=== PATIENT | female | born 1980 | race Caucasian/White ===

== ENCOUNTER 2019-12-29 08:45 | Outpatient (CLI) | payer OTHER, SELFPAY ==
--- NOTE | ~2019-12-29 | US_ITS ---
EXAMINATION: US soft tissue head and neck EXAM DATE: 12/29/2019 09:21 INDICATION: Bilateral palpable lumps, submandibular region since August. TECHNIQUE: Multiple grayscale and Doppler images of the intrahepatic submandibular region bilaterally were obtained (by a technologist who performed the scan) and subsequently reviewed. There is no terra or study for comparison. FINDINGS: In right submandibular region there is soft tissue nodule consistent with lymph node, expected fatty hilum, measuring 0.9 x 0.6 x 1.1 cm, within normal size limits. In the left submandibular region ther e is a similar sized lymph node also with expected fatty hilum. IMPRESSION: 1. Morphologically normal submandibular lymph nodes. Reviewed, dictated and finalized at location A.
== END 2019-12-29 08:46 | disposition home or self-care (01) ==
PROVIDERS: PCP Family Medicine; Visit Provider Family Medicine
DX: R22.1 Localized swelling, mass and lump, neck (principal)
CPT/HCPCS: 76536

== ENCOUNTER 2021-10-03 14:00 | Outpatient (RCR) | payer OTHER, SELFPAY ==
[2021-10-03 14:09] VITALS: BMI 39.2
[2021-10-03 14:14] VITALS: BMI 39.2
== END 2021-11-27 10:30 | disposition home or self-care (01) ==
LOC: ANHDMC 14:00
PROVIDERS: PCP Family Medicine; Visit Provider Obstetrics & Gynecology
DX: O24.319 Unspecified pre-existing diabetes mellitus in pregnancy, unspecified trimester (principal); Z3A.00 Weeks of gestation of pregnancy not specified; Z71.89 Other specified counseling; Z71.3 Dietary counseling and surveillance
CPT/HCPCS: 97802; G0108

== ENCOUNTER 2021-11-04 09:44 | Inpatient (IN) | payer OTHER, SELFPAY ==
[2021-11-04] VITALS (60 sets, daily range): BP systolic 84–125; BP diastolic 38–76; PULSE 76–112; RESP 17–18; TEMP 36.1–36.6; O2SAT 80–100; BMI 43.0
[2021-11-04] MEDS: LACTATED RINGERS 1,000 ML 125 ML IV CONT (10:20)
--- NOTE | 2021-11-04 10:20 | LDADM ---
This patient, Neela Nova, was admitted to OB Post [facility] on 11/04/21 at 09:44. Plans for labor, pain management and were discussed with patient. Patient/family oriented to hospital policies and general routines including ID bracelet, bed and alarms, visiting hours, pain management, procedures, bathroom and other care routines, personal items, smoking policy, room service/diet and guest tray routines, infant security routines, and visiting hours. Patient/Family are encouraged to report perceived risks to care and to ask questions if they do not understand what they are told or what they should do. See OBIX for further documentation.
--- NOTE | 2021-11-04 10:25 | WPDANESEPP ---
Anes - Eval Pre Procedure Procedure: REpeat C section Date/Time: 11/04/21 10:25 Surgeon: Eloy Magdaleno Preop Diagnosis: Previous c section Pre Op Diagnosis: Leaking Patient Data Age: 41 Gender: F Height: Weight: Last Vital Signs Pulse 108 H 11/04/21 10:02 BP 125/76 11/04/21 10:02 Allergies Allergy/AdvReac Type Severity Reaction Status Date / Time No Known Allergies Allergy Unknown Verified 03/09/17 12:34 Home Medications Medication Instructions Recorded Confirmed Type norethindrone (contraceptive) 0.35 0.35 mg PO DAILY 08/02/19 History mg tablet bupropion HCl 150 mg 24 hr tablet, 150 mg PO BID #180 tablet 10/13/19 Rx extended release flu vac qs (4 yr up) CD 60 IM 11/08/19 History mcg (15 mcg x 4)/0.5 mL IM susp Patient hx anesthesia problems: none Family hx anesthesia problems: none Results Review: All pre-operative results and documents have been reviewed as part of the pre-operative evaluation. 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 Family History Family History Father Hypertension Asthma Family history of chronic obstructive pulmonary disease Sibling Patient's sister is in good health Grandparent Family history of cardiovascular disease, Onset Age: 62 Acute myocardial infarction, Onset Age: 62 Family history of pancreatic cancer, Onset Age: 70 Mother Family history of malignant neoplasm of breast in first degree relative, Onset Age: 58 Social History Social History Smoking status: Former smoker Second hand tobacco smoke exposure: No Smoking end date: 07/05/06 Alcohol intake: never Substance use: never Gender identity (if verbalized by the patient): Female Spiritual care concerns: No Exam Day of Procedure 11/04/21 10:25 Patient weight: obese Heart: regular rate and rhythm Lungs: clear to auscultation Airway: Mallampati scale Neurological: alert and oriented
--- NOTE | 2021-11-04 10:33 | PM.IMHP ---
H&P: HPI History of Present Illness Date/Time: 11/04/21 10:33 41-year-old 5 para 4 with 4 previous C-sections here complaining of spontaneous rupture membranes prior to admission. is complicated by elevated 3hour GTT but she has been diet controlled since. She will undergo a repeat low-transverse section. 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 delivered Family History Family History Father Hypertension Asthma Family history of chronic obstructive pulmonary disease Sibling Patient's sister is in good health Grandparent Family history of cardiovascular disease, Onset Age: 62 Acute myocardial infarction, Onset Age: 62 Family history of pancreatic cancer, Onset Age: 70 Mother Family history of malignant neoplasm of breast in first degree relative, Onset Age: 58 Social History Social History Smoking status: Never smoker Second hand tobacco smoke exposure: No Smoking end date: 07/05/06 Alcohol intake: never Substance use: never Gender identity (if verbalized by the patient): Female Spiritual care concerns: No Meds Home Medications and Allergies Home Medications Medication Instructions Recorded Confirmed Type bupropion HCl 150 mg 24 hr tablet, 150 mg PO BID #180 tablet 10/13/19 Rx extended release vit no.[id number] 1 tablet PO DAILY 11/04/21 11/04/21 History [Classic ] Allergies Allergy/AdvReac Type Severity Reaction Status Date / Time No Known Allergies Allergy Unknown Verified 03/09/17 12:34 Vital Signs Vital Signs - 24 hr 11/04/21 10:02 Pulse Rate 108 H Blood Pressure 125/76 Exam Const: General: no acute distress Eyes: General: appearance normal, both eyes and all related structures Neck: Neck: supple and no JVD Thyroid: thyroid normal Resp: Effort & Inspection: normal respiratory effort Auscultation: clear to auscultation bilaterally Cardio: Rate: regular rate Rhythm: regular rhythm GI: Inspection: non-distended GI Palp: Yes Soft to palpation, No Tenderness to palpation present (GI) and No Guarding due to palpation present (GI) Auscultation: normal bowel sounds : External Female Exam: normal external appearance Speculum Exam - Vagina: normal appearance of the vagina Speculum Exam - Cervix: Cervical os closed ( Clear fluid seen with positive rupture membranes. FHTs were reassuring) Skin: General skin exam: no rashes or lesions noted Extrem: General: normal to inspection and no edema Psych: Mental Status: mental status grossly normal Affect: normal affect Assessment and Plan Additional Plan impression: 35 week with spontaneous rupture membranes and previous section Plan: Repeat low-transverse section
--- NOTE | 2021-11-04 10:35 | WPDHPUPDATE1 ---
History and Physical Update Update Date/Time: 11/04/21 10:35 History and Physical has been reviewed, including an updated exam of the patient. There are NO changes in the patient's condition. Risks, benefits, and alternatives have been discussed and questions answered. Patient agrees to proceed with procedure.
--- NOTE | 2021-11-04 10:37 | WPDANESEPPF ---
Anes - Initial Pre Proc Eval Procedure: Operation Date: 11/04/21 11:00 Proposed Procedures p Section - Tristen Heller MD Date/Time: 11/04/21 10:37 Surgeon: Tristen Heller MD Pre Op Diagnosis: Leaking Patient Data Age: 41 Gender: F Height: 1.52 m Weight: 100 kg Last Vital Signs Pulse 108 H 11/04/21 10:02 BP 125/76 11/04/21 10:02 Allergies Allergy/AdvReac Type Severity Reaction Status Date / Time No Known Allergies Allergy Unknown Verified 03/09/17 12:34 Home Medications Medication Instructions Recorded Confirmed Type bupropion HCl 150 mg 24 hr tablet, 150 mg PO BID #180 tablet 10/13/19 11/04/21 Rx extended release hydrocodone-acetaminophen 1 tablet PO Q4H PRN #30 tablet 11/04/21 Rx vit no.[id number] 1 tablet PO DAILY 11/04/21 11/04/21 History [Classic ] Patient hx anesthesia problems: none Family hx anesthesia problems: none Results Review: All pre-operative results and documents have been reviewed as part of the pre-operative evaluation. 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 delivered Family History Family History Father Hypertension Asthma Family history of chronic obstructive pulmonary disease Sibling Patient's sister is in good health Grandparent Family history of cardiovascular disease, Onset Age: 62 Acute myocardial infarction, Onset Age: 62 Family history of pancreatic cancer, Onset Age: 70 Mother Family history of malignant neoplasm of breast in first degree relative, Onset Age: 58 Social History Social History Smoking status: Never smoker Second hand tobacco smoke exposure: No Smoking end date: 07/05/06 Alcohol intake: never Substance use: never Gender identity (if verbalized by the patient): Female Spiritual care concerns: No Anes - Eval Final PreProcedure Day of Procedure 11/04/21 10:37 Patient weight: obese Heart: regular rate and rhythm Lungs: clear to auscultation Airway: Mallampati scale class II Neurological: alert and oriented ASA classification: III Emergent: no Anesthetic plan: proceed Anesthesia type and monitoring: regional spinal and standard monitoring Results Review: All pre-operative results and documents have been reviewed as part of the pre-operative evaluation. Informed Consent: The patient's anesthetic plan and its attendant risks and benefits were discussed with the patient/family/POA. Questions were solicited and answers provided to the satisfaction of the patient/family/POA.
[2021-11-04 10:41] LABS: Basophils Percent Auto 0.3 % (0.2-1.2); Eosinophils Absolute Auto 0.1 K/mm3 (0-0.3); Eosinophils Percent Auto 0.8 % (0-4.4); Hematocrit 34.8 % (37.0-47.0); Hemoglobin 11.1 g/dL (12.0-15.0); Immature Granulocyte Absolute 0.08 K/mm3 (0.00-0.031); Immature Granulocyte Percent A 0.7 % (0-0.5); Lymphocytes Absolute Auto 2.41 K/mm3 (0.9-3.2); Lymphocytes Percent Auto 20.8 % (18.3-44.2); Mean Corpuscular HGB Conc 31.9 g/dl (32-36); Mean Corpuscular Hemoglobin 30.8 pg (26-34); Mean Corpuscular Volume 96.7 fl (80-100); Mean Platelet Volume 10.5 fl (7.4-10.4); Monocytes Absolute Auto 0.7 K/mm3 (0.1-0.6); Monocytes Percent Auto 5.6 % (2.6-8.5); Neutrophils Absolute Auto 8.3 K/mm3 (1.3-6.7); Neutrophils Percent Auto 71.8 % (45.5-73.1); Platelet Count Result 248 k/mm3 (150-375); Red Cell Distribution Width 13.9 % (11.5-14.5); White Blood Count 11.6 K/mm3 (4.5-10.0)
[2021-11-04] MEDS: ceFAZolin 2 GM/D5W 50 ML 2 GM/50 ML BAG IVPB (11:09)
[2021-11-04 11:34] LABS: HIV 1/2 Ab P24 Ag Result Negative (Negative)
--- NOTE | 2021-11-04 11:53 | W.PM.PROC2 ---
Procedure Note - Detailed Date of Procedure 11/04/21 Pre-op Diagnosis [id number] weeks/prev section Post-op Diagnosis Same Procedure Performed Repeat section low-transverse Surgeon Tristen Heller MD Anesthesia Spinal Indications this is a 41-year-old 35 weeks gestation with spontaneous rupture membranes and 4 previous C-sections Findings medially and Apgars of 3 and 7 at 1 and 5minutes respectively Description of Procedure patient was admitted. Taken back to the OR and placed in the supine position. Under excellent spinal anesthetic the abdomen was entered through the previous Pfannenstiel incision. This was progressive layers the fascia. Fascia was incised admitted and upward outward fashion bilaterally. Underlying muscles were sharply dissected prior perineum 0 by Lyubov clamps. This was done by [facility] ander. Really bladder. Bladder placement was placed bladder flap was formed bladder blade returned. Low-transverse incision made the head delivered in the JYOTSNA position anterior posterior shoulder delivered spontaneously cord clamped 2 and cut and passed off the table. Placenta delivered intact manually uterus delivered on the abdomen wrapped in moist towel. After assuring no membranes or debris remained in the uterus, the uterus was closed with continuous running 0 Vicryl from lateral edge to lateral edge followed by 2nd imbricating running locking 0 Vicryl from lateral edge to lateral edge. Hemostasis was assured. Ovaries and tubes appeared within normal limits and the uterus returned to the abdomen. Uterine incision inspected 1 last time noted be hemostatic, and the laps removed and accounted for. The fascia closed with continuous running 0 Vicryl from lateral edge to midline bilaterally. Irrigation subcutaneous layer and the skin closed with 4 Monocryl and glue. Quantitative blood loss was estimated [id number]. All sponge, needle, instrument counts were correct. There were no immediate complications. Estimated Blood Loss 140 Drains No Packing No Pathology None sent Complications No immediate complications Condition Stable Disposition Floor
[2021-11-04] MEDS: OXYTOCIN 30 UNITS/NS 500 ML 30 UNITS/500 ML BAG 125 UNITS IV CONT (12:50)
[2021-11-04] MEDS: KETOROLAC 30 MG/ML VIAL (*BKC) 15 MG IM (12:59)
[2021-11-04 14:21] LABS: Rapid Plasma Reagin Non-Reactive (NonReactive)
--- NOTE | 2021-11-04 17:15 | OBPPTRN ---
Patient transferred to post room # 292 via stretcher. Oriented to unit, room, information board, rooming in, admission packet and security measures. Patient verbalizes understanding.
[2021-11-04] MEDS: DEXTROSE 5%/0.45% SOD CHL 1,000 ML 125 ML IV CONT (19:36)
[2021-11-05] VITALS: BP 117/65; PULSE 77; RESP 18; TEMP 36.9
[2021-11-05] MEDS: HYDROcodone/acetaminophen (*CRX) 5-325 MG TABLET 1 TAB PO ×5 (04:03→20:26)
[2021-11-05] MEDS: IBUPROFEN 600 MG TABLET PO ×3 (04:04→20:26)
[2021-11-05 04:10] VITALS: BP 98/56; PULSE 97; RESP 18; TEMP 36.6
[2021-11-05 05:53] LABS: Basophils Percent Auto 0.2 % (0.2-1.2); Eosinophils Absolute Auto 0.1 K/mm3 (0-0.3); Eosinophils Percent Auto 0.6 % (0-4.4); Hematocrit 29.4 % (37.0-47.0); Hemoglobin 9.1 g/dL (12.0-15.0); Immature Granulocyte Absolute 0.07 K/mm3 (0.00-0.031); Immature Granulocyte Percent A 0.7 % (0-0.5); Lymphocytes Absolute Auto 1.73 K/mm3 (0.9-3.2); Lymphocytes Percent Auto 16.3 % (18.3-44.2); Mean Corpuscular Hemoglobin 30.6 pg (26-34); Mean Platelet Volume 10.6 fl (7.4-10.4); Monocytes Absolute Auto 0.7 K/mm3 (0.1-0.6); Monocytes Percent Auto 6.8 % (2.6-8.5); Neutrophils Percent Auto 75.4 % (45.5-73.1); Platelet Count Result 219 k/mm3 (150-375); Red Blood Count 2.97 M/mm3 (4.2-5.4); White Blood Count 10.6 K/mm3 (4.5-10.0)
--- NOTE | 2021-11-05 06:44 | PM.OBPNVD ---
OB - PN: Subj Subjective Date/time seen: 11/05/21 06:44 Patient comments: no complaints and pain well controlled baby status: doing well OB - PN: Obj Data Labs CBC & Chem 7: 11/05/21 04:15 Labs: Laboratory Results - last 24 hr 11/04/21 11/04/21 11/04/21 10:36 10:36 10:36 WBC 11.6 H RBC 3.60 L Hgb 11.1 L Hct 34.8 L MCV 96.7 MCH 30.8 MCHC 31.9 L RDW 13.9 Plt Count 248 MPV 10.5 H Immature Gran % (Auto) 0.7 H Neut % (Auto) 71.8 Lymph % (Auto) 20.8 [place] % (Auto) 5.6 Eos % (Auto) 0.8 Baso % (Auto) 0.3 Lymph # (Auto) 2.41 [place] # (Auto) 0.7 H Eos # (Auto) 0.1 Baso # (Auto) 0.0 Abs Immat Gran (auto) 0.08 H Absolute Neuts (auto) 8.3 H Absolute Nucleated RBC 0.0 Nucleated RBC % 0.0 RPR Non-reactive HIV 1&2 Ab/P24 Ag 4thGn Blood Type A Negative Antibody Screen Negative 11/04/21 11/05/21 11/05/21 10:36 04:15 04:15 WBC 10.6 H RBC 2.97 L Hgb 9.1 L Hct 29.4 L MCV 99.0 MCH 30.6 MCHC 31.0 L RDW 14.0 Plt Count 219 MPV 10.6 H Immature Gran % (Auto) 0.7 H Neut % (Auto) 75.4 H Lymph % (Auto) 16.3 L [place] % (Auto) 6.8 Eos % (Auto) 0.6 Baso % (Auto) 0.2 Lymph # (Auto) 1.73 [place] # (Auto) 0.7 H Eos # (Auto) 0.1 Baso # (Auto) 0.0 Abs Immat Gran (auto) 0.07 H Absolute Neuts (auto) 8.0 H Absolute Nucleated RBC 0.0 Nucleated RBC % 0.0 RPR HIV 1&2 Ab/P24 Ag 4thGn Negative Blood Type A Negative Antibody Screen Negative OB - PN A/P Plan day: 1 Plan: routine care Time Spent With Patient Time: Total time spent is greater than 50% in coordination of care (as documented) at patient's floor/unit and/or counseling patient: Time with patient: less than 15 minutes Review of Systems Review of Systems: All systems reviewed & are unremarkable except as noted in HPI and below Exam Const: General: no acute distress Eyes: General: appearance normal, both eyes and all related structures Neck: Neck: supple and no JVD Thyroid: thyroid normal Resp: Effort & Inspection: normal respiratory effort Auscultation: clear to auscultation bilaterally Cardio: Rate: regular rate Rhythm: regular rhythm GI: Inspection: normal to inspection and incision (cdi) : General: Yes bladder normal to palpation External Female Exam: normal external appearance Speculum Exam - Vagina: normal vaginal discharge and No vaginal bleeding Speculum Exam - Cervix: nontender Bimanual exam- vagina & uterus: bladder normal to palpation and No Cervical tenderness present OB/external & speculum: No vaginal bleeding Skin: General skin exam: no rashes or lesions noted Extrem: General: normal to inspection and no edema Psych: Mental Status: mental status grossly normal Affect: normal affect
[2021-11-05] MEDS: MULTIVIT/MIN/PREN/FOL AC/IRON TABLET 1 TAB PO (08:25)
[2021-11-05] MEDS: POLYSACCHARIDE IRON COMPLEX 150 MG CAPSULE PO ×2 (08:25→16:42)
[2021-11-05] MEDS: DOCUSATE SODIUM 100 MG CAPSULE PO ×2 (08:25→16:42)
[2021-11-05 09:20] VITALS: BP 92/54; PULSE 96; RESP 16; TEMP 36.6; O2SAT 98
[2021-11-05] MEDS: RHO(D) IMMUNE GLOBULIN 300 MCG/2 ML SYRINGE IM (10:29)
--- NOTE | 2021-11-05 12:37 | WPDANLDPN2 ---
Anes-Prog Note L&D Date/Time: 11/05/21 12:37 Comfortable throughout: section Neuraxial method: spinal Epidural/Spinal procedure site: clean & non-tender Neuro status: Neuro function grossly intact. Cardiovascular status: normal Respiratory status: normal Airway patency: baseline Mental status: baseline Post-Op hydration status: normal Vital Signs: Last Vital Signs Temp 98 F 11/05/21 09:20 Pulse 96 11/05/21 09:20 Resp 16 11/05/21 09:20 BP 92/54 L 11/05/21 09:20 Pulse Ox 98 11/05/21 09:20 Pain score (VAS): 07/14 I/O: Intake & Output 11/04/21 11/05/21 11/05/21 23:59 07:59 15:59 Intake Total 1000 2200 Output Total 1200 3450 Balance -200 -1250 Post-procedural complaints: none Patient feedback: Patient satisfied with anesthetic care.
--- NOTE | 2021-11-05 12:38 | WPDANLDNPN2 ---
Anes-Prog Note L&D-Neuraxial Date/Time: 11/05/21 12:38 Neuraxial medications: intrathecal PF morphine Opiod-related complaints: none Patient feedback: Patient satisfied with post-operative pain management.
--- NOTE | 2021-11-05 16:25 | PC.NURSE ---
0800 - Introductions were made, then consulted with patient to assess needs related to . Mother led the conversation with her experience feeding her infant so far. Mother works with her infant with encouragement and education. Reinforced education regarding caring for, stimulating to eat, maintaining temperature of her 34 w 6d . Encouraged understanding of the benefits of skin to skin (unwrapping infant and placing vertically on her chest), responsive feeding and how to watch for early feeding signs, frequency of feeding on demand about every 8-12 times in 24 hours (every 2-3 hours), milk production, duration of feeding, signs of adequate intake/output and how to record on the feeding sheet. Reviewed positioning and ear, shoulder, hip alignment, supporting the breast, asymmetrical latch (off-center), and leading with the chin with a big open side gape. Reinforced teaching as mother is easily distracted. Several attempts were made to place skin to skin, watch for feeding cues, attempt to latch infant. Mother is encouraged many times to work with her . Reassessed her desire to breastfeed her infant. She has some history of experience with some of her children. After 30 minutes of attempting to breastfeed mother was encouraged to pump if she desires to have a milk production. Reviewed with mother how to bottle feed her . Resources used to facilitate learning were used with the mom and baby guide. Mother voiced understanding of the information shared but information will need to be reinforced as mother seems distracted. Reported to the primary RN.
[2021-11-05] MEDS: TETANUS,DIPHTHERIA,AC PERTUSSIS ADULT (0.5 ML) BOOSTRIX IM (16:41)
[2021-11-05 19:40] VITALS: BP 113/53; PULSE 95; RESP 18; TEMP 36.7
[2021-11-06] MEDS: HYDROcodone/acetaminophen (*CRX) 5-325 MG TABLET 1 TAB PO ×4 (02:45→22:38)
[2021-11-06] MEDS: IBUPROFEN 600 MG TABLET PO ×4 (02:45→22:38)
--- NOTE | 2021-11-06 07:08 | P.PNOB_ITS ---
OB - PN: Subj Subjective Date/time seen: 11/06/21 07:08 Patient comments: no complaints and pain well controlled baby status: doing well OB - PN: Obj Data Labs CBC & Chem 7: 11/05/21 04:15 Labs: Laboratory Results - last 24 hr 11/05/21 04:15 Blood Type A Negative Antibody Screen Negative Screen Negative Baby's Blood Type A pos Baby's BENJAMIN Negative Doses of RhIg Required 1 OB - PN A/P Plan day: 2 Plan: routine care Time Spent With Patient Time: Total time spent is greater than 50% in coordination of care (as documented) at patient's floor/unit and/or counseling patient: Time with patient: less than 15 minutes Review of Systems Review of Systems: All systems reviewed & are unremarkable except as noted in HPI and below Exam Const: General: no acute distress Eyes: General: appearance normal, both eyes and all related structures Neck: Neck: supple and no JVD Thyroid: thyroid normal Resp: Effort & Inspection: normal respiratory effort Auscultation: clear to auscultation bilaterally Cardio: Rate: regular rate Rhythm: regular rhythm GI: Inspection: non-distended GI Palp: Yes Soft to palpation, No Tenderness to palpation present (GI) and No Guarding due to palpation present (GI) A uscultation: normal bowel sounds : General: Yes bladder normal to palpation External Female Exam: normal external appearance Speculum Exam - Vagina: normal vaginal discharge and No vaginal bleeding Speculum Exam - Cervix: nontender Bimanual exam- vagina & uterus: bladder normal to palpation and No Cervical tenderness present OB/external & speculum: No vaginal bleeding Skin: General skin exam: no rashes or lesions noted Extrem: General: normal to inspection and no edema Psych: Mental Status: mental status grossly normal Affect: normal affect
[2021-11-06 07:10] VITALS: BP 117/57; PULSE 93; RESP 20; TEMP 37.1; O2SAT 99
[2021-11-06 08:00] VITALS: PULSE 93; RESP 20; O2SAT 99
[2021-11-06] MEDS: POLYSACCHARIDE IRON COMPLEX 150 MG CAPSULE PO ×2 (09:57→16:29)
[2021-11-06] MEDS: DOCUSATE SODIUM 100 MG CAPSULE PO ×2 (09:58→16:29)
[2021-11-06] MEDS: MULTIVIT/MIN/PREN/FOL AC/IRON TABLET 1 TAB PO (09:58)
--- NOTE | 2021-11-06 13:57 | PC.NURSE ---
Primary RN reported that mother () works well with her 34w 6d and a feeding plan of with /pumping/supplementing is going well.
[2021-11-06 18:40] VITALS: BP 116/55; PULSE 95; RESP 18; TEMP 37
[2021-11-07 07:30] VITALS: BP 129/56; PULSE 86; RESP 18; TEMP 36.7; O2SAT 100
[2021-11-07 08:00] VITALS: PULSE 86; RESP 18; O2SAT 100
--- NOTE | 2021-11-07 09:09 | PM.OBPNVD ---
OB - PN: Subj Subjective Date/time seen: 11/07/21 09:09 Narrative: Pain OK. Tolerating diet. OB - PN: Obj Data Labs CBC & Chem 7: 11/05/21 04:15 Labs: Laboratory Results - last 24 hr 11/05/21 04:15 Blood Type A Negative Antibody Screen Negative Screen Negative Baby's Blood Type A pos Baby's BENJAMIN Negative Doses of RhIg Required 1 OB - PN A/P Plan Comments: A: POD#3, doing well. P: Routine care. Exam Narrative: AVSS I/O OK ABD soft, nontender, fundus firm. Incision c/d/i. EXT nontender
[2021-11-07] MEDS: IBUPROFEN 600 MG TABLET PO ×2 (09:35→17:44)
[2021-11-07] MEDS: MULTIVIT/MIN/PREN/FOL AC/IRON TABLET 1 TAB PO (09:41)
[2021-11-07] MEDS: HYDROcodone/acetaminophen (*CRX) 5-325 MG TABLET 1 TAB PO ×2 (09:41→17:44)
[2021-11-07] MEDS: POLYSACCHARIDE IRON COMPLEX 150 MG CAPSULE PO ×2 (09:42→17:45)
[2021-11-07] MEDS: DOCUSATE SODIUM 100 MG CAPSULE PO ×2 (09:42→17:45)
[2021-11-07 21:20] VITALS: BP 116/64; PULSE 89; RESP 18; TEMP 36.7
[2021-11-08] MEDS: IBUPROFEN 600 MG TABLET PO ×3 (02:24→15:14)
[2021-11-08] MEDS: HYDROcodone/acetaminophen (*CRX) 5-325 MG TABLET 1 TAB PO ×3 (02:24→15:13)
--- NOTE | 2021-11-08 08:31 | PM.OBPNVD ---
OB - PN: Subj Subjective Date/time seen: 11/08/21 08:31 Narrative: Pain OK. Tolerating diet. Would like to go home. OB - PN: Obj Data Labs CBC & Chem 7: 11/05/21 04:15 OB - PN A/P Plan Comments: A: POD#4, doing well. P: Home to f/u 4 weeks. Exam Narrative: AVSS ABD soft, nontender, fundus firm. Incision c/d/i. EXT nontender
[2021-11-08] MEDS: POLYSACCHARIDE IRON COMPLEX 150 MG CAPSULE PO (09:23)
[2021-11-08] MEDS: DOCUSATE SODIUM 100 MG CAPSULE PO (09:24)
[2021-11-08] MEDS: MULTIVIT/MIN/PREN/FOL AC/IRON TABLET 1 TAB PO (09:24)
[2021-11-08 09:35] VITALS: BP 109/66; PULSE 85; RESP 16; TEMP 36.2; O2SAT 100
[2021-11-11 11:41] VITALS: BP 127/76; PULSE 89; RESP 16; TEMP 37.3; O2SAT 99
--- NOTE | 2021-11-25 08:44 | PM.OBDSVD ---
DS: Admitting Diagnosis Discharge Date 11/08/21 Admitting Diagnosis IUP at 35 weeks SROM Prior cesareans DS: Discharge Diagnosis Discharge Diagnosis (1) delivery, delivered: Code(s): O60.10X0 - labor with delivery, unspecified trimester, not applicable or unspecified Status: Acute (2) History of delivery: Code(s): Z98.891 - History of uterine scar from previous surgery Status: Acute (3) SROM (spontaneous rupture of membranes): Status: Acute OB - DS: Summary OB Procedures : None OB Procedures Intrapartum: OB Procedures: : None Peripartum Data Procedures: Procedures Operation Date: 11/04/21 11:00 Actual Procedure Side Surgeon p Section Tristen Heller MD Time Spent with Patient Time attestation: Total time spent providing and/or coordinating discharge services: Discharge Plan Discharge Attending physician on discharge: Tristen Florez Consulting providers: Moose Zhang ; [facility] [place] Discharging Clinician: Tristen Florez Patient Disposition: Home, Self-Care Activity: may shower, no driving and pelvic rest Diet: heart healthy Wound Care Instructions: follow printed instructions Discharge Instructions: Education: Mom and Baby Guide Given to: Mother Follow-Up: Call your delivering provider's office for an appointment to be seen in: 4 Weeks Mom and baby should come to the [facility] for the follow-up appointment. Appointment Date/Time: TBD Call [phone] if you are unable to keep your appointment time. BREAST CARE: * Wear a snug supportive bra. * For engorgement discomfort: Breast Feeding: * Apply warm moist washcloths * Express milk as needed to relieve engorgement * Wear loose clothing Bottle Feeding: * May apply ice packs * For sore nipples: * Identify correct latch-on * Apply warm moist washcloths before and after nursing * Air dry nipples after nursing * May apply Lansinoh cream to nipples ABDOMINAL INCISION: (if applicable) * Allow incision to air dry * Do NOT use lotions for powders on your incision * When showering, allow soap and water to run over the incision, but do not wash incision PERINEAL CARE: * Until bleeding stops, use your virgilio bottle after urinating * Change your pad frequently throughout the day ACTIVITY: * Rest as much as possible. * Do not exercise or lift anything heavier than your baby (such as laundry or other children.) * Avoid stairs or driving as much as possible. * Do not put anything into the vagina. No douching, tampons, or sexual activity until seen by physician. NOTIFY PHYSICIAN IF YOU HAVE ANY QUESTIONS OR IF ANY OF THE FOLLOWING SYMPTOMS OCCUR: * If your episiotomy or incision becomes red, swollen, or more painful than what you have experienced in the hospital. * If your vaginal bleeding becomes foul smelling. * If your vaginal bleeding becomes more heavy than a period or if your bleeding changes from pink to bright red. However, you may pass an occasional walnut-sized clot once or twice for the first week . * If you experience a sharp, shooting pain in you calves. * If you discover a hard, reddened area on your breast or if you experience flu-like symptoms. DIET: * Eat regular, well-balanced meals. * Drink plenty of fluids daily. If , drink to thirst. Follow-up/Referrals: Tristen Florez MD [Physician] - Discharge Medications: New hydrocodone-acetaminophen 5-325 mg tablet 1 tablet PO Q4H PRN (Reason: pain) Qty: 30 0RF ferrous sulfate 325 mg (65 mg iron) tablet 325 mg PO DAILY Qty: 30 0RF Continued Classic 28 mg iron- 800 mcg Tablet 1 tablet PO DAILY bupropion HCl 150 mg tablet extended release 24 hr 150 mg PO BI
== END 2021-11-08 15:20 | disposition home or self-care (01) | DRG 786 ==
LOC: ANHOBOP 09:49 → ANHOBPP 09:52 → ANHOBOP 10:19 → ANHOB2 11-08 08:32 → ANHLDR 11-10 11:30 → ANHOB2 11-10 11:30 → ANHOBPP 11-10 11:30
PROVIDERS: Admitting Provider Obstetrics & Gynecology; PCP Family Medicine; Visit Provider Obstetrics & Gynecology
PROC: 10D00Z1 Extraction of Products of Conception, Low, Open Approach (ICD-10-PCS; CPT 59514; principal; 2021-11-04 11:00)
DX: O42.913 Preterm premature rupture of membranes, unspecified as to length of time between rupture and onset of labor, third trimester (principal); O60.14X0 Preterm labor third trimester with preterm delivery third trimester, not applicable or unspecified; Z37.0 Single live birth; Z3A.34 34 weeks gestation of pregnancy; O34.211 Maternal care for low transverse scar from previous cesarean delivery; O24.420 Gestational diabetes mellitus in childbirth, diet controlled; O99.344 Other mental disorders complicating childbirth; F41.9 Anxiety disorder, unspecified; F32.9 Major depressive disorder, single episode, unspecified
CPT/HCPCS: 36415; 84112; 85025; 85461; 86592; 86703; 86850; 86900; 86901; 90384; 90715; 99199; A9270; G0432; J0690; J1885; J2274; J2405; J2590; J2790; J7120

== ENCOUNTER 2024-03-16 09:38 | Outpatient (CLI) | payer OTHER, SELFPAY ==
--- NOTE | ~2024-03-16 | MM_ITS ---
EXAMINATION: MM screening [facility] w milo HISTORY: Screening mammogram, family history of breast cancer in her mother. TECHNIQUE: Craniocaudal and mediolateral oblique 3-D tomosynthesis images were obtained and synthetic 2-D images were generated. CAD analysis was submitted and interpreted. COMPARISON: No prior mammogram is available for comparison at this institution. BREAST PARENCHYMAL COMPOSITION:Not Dense. There are scattered areas of fibroglandular density. FINDINGS: No suspicious mass, calcification, or architectural distortion are identified in either wandy ast to suggest malignancy. There has been no suspicious interval change. IMPRESSION: No mammographic evidence of malignancy. Recommend routine screening mammography in one year. BI-RADS Category 1: Negative Reviewed, dictated and finalized at location .
== END 2024-03-16 09:39 | disposition home or self-care (01) ==
PROVIDERS: PCP Family Medicine; Visit Provider Obstetrics & Gynecology
DX: Z12.31 Encounter for screening mammogram for malignant neoplasm of breast (principal)
CPT/HCPCS: 77063; 77067